=== PATIENT | male | born 1960 | race Caucasian/White ===

== ENCOUNTER → 2016-07-15 | Outpatient (CLI) | payer BC ==
[~2016-07-15] MED LIST: CALC-603 PO; FEXO180T56 PO; GADOBUTROL 10mMol/10ml INJECTION IV ONE; LACT1CAP67 PO; LAMO100T7 PO; LEVO25TA7 PO; SALINE FLUSH 10ml SYRINGE ONE; VALP250S2 PO
--- NOTE | 2016-07-15 14:03 | DI ---
Indication: ITS.REASON: G40.201 EPILEPSY; G40.209; F09 MENTAL DISORDER PROCEDURE: MRI BRAIN W/WO CONTRAST: Encounter: Initial Comparisons: None Technique: Multiplanar, multisequence, MR imaging of the head with and without contrast was acquired. Contrast: 8 mL of Gadavist FINDINGS: Mild atrophy. The ventricles are of normal size, shape, and contour for the patient's age. The brain stem, cerebellum, and cerebral hemispheres have a normal morphologic appearance as well as MR signal intensity on all pulse sequences. Following intravenous administration of contrast, no areas of abnormal enhancement are evident. There are no areas of restricted diffusion to suggest an acute infarct. There is no evidence of an intracranial mass lesion, intracranial hemorrhage, or hydrocephalus. The visualized portions of the orbits, calvarium, and skull base demonstrate no significant abnormality. Right frontal sinus is completely opacified. Right sphenoid sinus is hypoplastic with mucosal thickening. IMPRESSION: Mild atrophy, otherwise normal appearance of the brain parenchyma. Severe right frontal sinus disease. .
== END ==
LOC: IMA 12:08
PROVIDERS: ATTEND Electrodiagnostic Medicine
DX: G40.201 Localization-related (focal) (partial) symptomatic epilepsy and epileptic syndromes with complex partial seizures, not intractable, with status epilepticus (principal); G31.9 Degenerative disease of nervous system, unspecified; G40.209 Localization-related (focal) (partial) symptomatic epilepsy and epileptic syndromes with complex partial seizures, not intractable, without status epilepticus; F09 Unspecified mental disorder due to known physiological condition
CPT/HCPCS: 70553; A9585